=== PATIENT | female | born 1960 | race African-American/Black ===

== ENCOUNTER 2018-03-18 08:13 | Outpatient (CLI) | payer MEDICARE, MEDICAID | END 2018-03-18 08:14 | disposition home or self-care (01) | LOC: BICMAMMO 08:13 | PROVIDERS: ATTEND Family Medicine | DX: Z12.31 Encounter for screening mammogram for malignant neoplasm of breast (principal) | CPT/HCPCS: 77063; 77067 ==

== ENCOUNTER 2019-01-27 11:10 | Emergency (ER) | payer MEDICARE, MEDICAID ==
--- NOTE | 2019-01-27 11:37 | CT ---
CT head noncontrast HISTORY: Fall. Head injury. FINDINGS: There is no evidence of acute intracranial hemorrhage or infarct. Physiologic calcification at each basal ganglia, somewhat prominent. No mass effect or shift of midline structures. Scalp swelling over the right frontal calvarium. Visualized paranasal sinuses remain well-aerated. IMPRESSION: Right frontal scalp swelling. No acute intracranial abnormalities are demonstrated.
--- NOTE | 2019-01-27 11:41 | CT ---
CT Cervical Spine WO Con Indication: Fall with neck pain COMPARISON: None. FINDINGS: Acute fracture/subluxation: None. Spinal alignment: There is straightening of the normal cervical lordosis. Vertebral body heights: Maintained. Cervical spine degenerative change: There is a moderate to severe multilevel disc degenerative diseas e. IMPRESSION: No acute fracture or subluxation. Moderate to severe spondylosis of the cervical spine.
== END 2019-01-27 12:30 | disposition home or self-care (01) ==
LOC: ERS 11:10
DX: S00.83XA Contusion of other part of head, initial encounter (principal); I10 Essential (primary) hypertension; W18.30XA Fall on same level, unspecified, initial encounter
CPT/HCPCS: 70450; 72125

== ENCOUNTER 2019-09-05 08:37 | Outpatient (CLI) | payer MEDICARE, MEDICAID ==
--- NOTE | 2019-09-05 09:29 | MMO ---
Bilateral MAMMO Bilat Screen [facility]. CLINICAL HISTORY: Patient is 59 years old and is seen for screening. The patient has no family history of breast cancer. The patient has no personal history of cancer. VIEWS: The views performed were: bilateral craniocaudal with tomosynthesis and bilateral mediolateral oblique with tomosynthesis. FILMS COMPARED: The present examination has been compared to prior imaging studies performed at [facility] on 03/03/2015, 03/06/2016, 03/14/2017 and 03/18/2018. This study has been interpreted with the assistance of computer-aided detection. MAMMOGRAM FINDINGS: There are scattered fibroglandular densities. There are no suspicious masses, suspicious calcifications, or new areas of architectural distortion. IMPRESSION: THERE IS NO MAMMOGRAPHIC EVIDENCE OF MALIGNANCY. A ROUTINE FOLLOW-UP MAMMOGRAM IN 1 YEAR IS RECOMMENDED. THE RESULTS OF THIS EXAM WERE SENT TO THE PATIENT. ACR BI-RADS Category 1 - Negative MAMMOGRAPHY NOTE: 1. A negative mammogram report should not delay a biopsy if a dominant of clinically suspicious mass is present. 2. Approximately 10% to 15% of breast cancers are not detected by mammography. 3. Adenosis and dense breasts may obscure an underlying neoplasm. Reported by: FELIPE BARAJAS MD Electonically Signed: [id number]
== END 2019-09-05 08:38 | disposition home or self-care (01) ==
LOC: BICMAMMO 08:37
PROVIDERS: ATTEND Family Medicine
DX: Z12.31 Encounter for screening mammogram for malignant neoplasm of breast (principal)
CPT/HCPCS: 77063; 77067

== ENCOUNTER 2020-09-27 08:02 | Outpatient (CLI) | payer MEDICARE, MEDICAID ==
--- NOTE | 2020-09-27 09:44 | MMO ---
Bilateral MAMMO Bilat Screen [facility]. CLINICAL HISTORY: Patient is 60 years old and is seen for screening. The patient has no family history of breast cancer. The patient has no personal history of cancer. VIEWS: The views performed were: bilateral craniocaudal with tomosynthesis and bilateral mediolateral oblique with tomosynthesis. FILMS COMPARED: The present examination has been compared to prior imaging studies performed at [facility] and [facility] on 03/06/2016, 03/14/2017, 03/18/2018 and 09/05/2019. This study has been interpreted with the assistance of computer-aided detection. MAMMOGRAM FINDINGS: There are scattered fibroglandular densities. There is an asymmetry seen in the upper-outer region of the right breast. In the left breast, there are no suspicious masses, calcifications or areas of architectural distortion. IMPRESSION: ASYMMETRY IN THE RIGHT BREAST REQUIRES ADDITIONAL EVALUATION. AN ULTRASOUND EXAM IS RECOMMENDED IF NEEDED. ADDITIONAL IMAGING. THE RESULTS OF THIS EXAM WERE SENT TO THE PATIENT. ACR BI-RADS Category 0 - Incomplete: Need additional imaging evaluation. [facility] and the [facility] will notify the patient of the need for additional imaging services. MAMMOGRAPHY NOTE: 1. A negative mammogram report should not delay a biopsy if a dominant of clinically suspicious mass is present. 2. Approximately 10% to 15% of breast cancers are not detected by mammography. 3. Adenosis and dense breasts may obscure an underlying neoplasm. Reported by: DANITA MOLINA MD Electonically Signed: [id number]
== END 2020-09-27 08:03 | disposition home or self-care (01) ==
LOC: BICMAMMO 08:02
PROVIDERS: ATTEND Family Medicine
DX: Z12.31 Encounter for screening mammogram for malignant neoplasm of breast (principal); N64.89 Other specified disorders of breast
CPT/HCPCS: 77063; 77067

== ENCOUNTER 2020-10-07 09:59 | Outpatient (CLI) | payer MEDICARE, MEDICAID ==
--- NOTE | 2020-10-07 11:48 | MMO ---
Right Breast MAMMO Unilat Diag [facility]. CLINICAL HISTORY: Patient is 60 years old and is seen for additional evaluation requested from prior study. The patient has no family history of breast cancer. The patient has no personal history of cancer. VIEWS: The views performed were: right craniocaudal spot compression with tomosynthesis; right mediolateral oblique spot compression with tomosynthesis; and right mediolateral with tomosynthesis. FILMS COMPARED: The present examination has been compared to prior imaging studies performed at [facility] on 03/18/2018, 09/05/2019, 09/27/2020 and 10/07/2020. This study has been interpreted with the assistance of computer-aided detection. MAMMOGRAM FINDINGS: There are scattered fibroglandular densities. There is a mass measuring 9 millimeters seen in the middle region of the right breast at 11 o'clock located 8 centimeters from the nipple. Margins are irregular but not spiculated. On ultrasound, there is a prt-[id number] flat thin hypoechoic well circumscribed structure at the upper outer quadrant which may or may not correspond to this mammographic mass. The findings and recommendations were discussed by Dr Rice with the patient's caregiver (presumably her mother) immediately after the ultrasound. IMPRESSION: MASS IN THE RIGHT BREAST IS PROBABLY BENIGN. FOLLOW-UP IN 6 MONTHS IS RECOMMENDED. RECOMMEND FOLLOW UP RIGHT MAMMOGRAMS AND ULTRASOUNDS AT 6 MONTHS, 1 YEAR, AND 2 YEARS. THE RESULTS OF THIS EXAM WERE SENT TO THE PATIENT. ACR BI-RADS Category 3 - Probably benign finding - short interval follow-up suggested. [facility] will notify the patient of the need for additional imaging services. MAMMOGRAPHY NOTE: 1. A negative mammogram report should not delay a biopsy if a dominant of clinically suspicious mass is present. 2. Approximately 10% to 15% of breast cancers are not detected by mammography. 3. Adenosis and dense breasts may obscure an underlying neoplasm. Reported by: DRAKE RICE MD Electonically Signed: [id number]
--- NOTE | 2020-10-07 11:54 | ULT ---
Ultrasound right breast limited: 10/07/2020 HISTORY: 60-year-old female with focal mass at right upper outer quadrant. TECHNIQUE: Focused ultrasound of right upper outer quadrant from 9:00 to 12:00. FINDINGS: At the right axillary tail, there are multiple dilated ducts. At the 11:00 position, 4 cm from the nipple, there is a thin, elongated, wider than tall, nonshadowin g, well-circumscribed, hypoechoic lesion that measures approximately 0.1 x 0.9 x 0.6 cm. It may or may not correspond to the mammographic mass in question. It resembles the dilated ducts seen in the r ight axillary tail. Survey of the rest of the right upper outer quadrant demonstrates no highly suspicious spiculated aster ast mass. No architectural distortion. IMPRESSION: 1.) BI-RADS 3-probably benign. Short interval follow-up suggested. 2) recommend follow-up right breast ultrasounds and right mammograms at 6 months, one year, and 2 [facility] turner
== END 2020-10-07 10:00 | disposition home or self-care (01) ==
LOC: BICMAMMO 09:59
PROVIDERS: ATTEND Family Medicine
DX: R92.8 Other abnormal and inconclusive findings on diagnostic imaging of breast (principal); N63.11 Unspecified lump in the right breast, upper outer quadrant
CPT/HCPCS: 76642; 77065; G0279

== ENCOUNTER 2022-02-14 13:47 | Outpatient (CLI) | payer MEDICARE, MEDICAID | END 2022-02-14 13:48 | disposition home or self-care (01) | LOC: ULT 13:47 | PROVIDERS: ATTEND Family Medicine | DX: I82.402 Acute embolism and thrombosis of unspecified deep veins of left lower extremity (principal); I82.432 Acute embolism and thrombosis of left popliteal vein; I82.412 Acute embolism and thrombosis of left femoral vein ==

== ENCOUNTER 2022-04-11 10:10 | Outpatient (CLI) | payer MEDICARE, MEDICAID | END 2022-04-11 10:11 | disposition home or self-care (01) | LOC: BICMAMMO 10:10 | PROVIDERS: ATTEND Family Medicine | DX: Z12.31 Encounter for screening mammogram for malignant neoplasm of breast (principal) | CPT/HCPCS: 77063; 77067 ==

== ENCOUNTER 2022-08-08 13:13 | Outpatient (CLI) | payer MEDICARE, MEDICAID | END 2022-08-08 13:14 | disposition home or self-care (01) | LOC: ULT 13:13 | PROVIDERS: ATTEND Family Medicine | DX: I82.432 Acute embolism and thrombosis of left popliteal vein (principal) ==

== ENCOUNTER 2023-05-24 13:54 | Outpatient (CLI) | payer MEDICARE, MEDICAID | END 2023-05-24 13:55 | disposition home or self-care (01) | LOC: BICMAMMO 13:54 | PROVIDERS: ATTEND Family Medicine | DX: Z12.31 Encounter for screening mammogram for malignant neoplasm of breast (principal) | CPT/HCPCS: 77063; 77067 ==

== ENCOUNTER 2024-10-23 10:31 | Outpatient (CLI) | payer MEDICARE, MEDICAID | END 2024-10-23 10:32 | disposition home or self-care (01) | LOC: ULT 10:31 | PROVIDERS: ATTEND Family Medicine | DX: R19.00 Intra-abdominal and pelvic swelling, mass and lump, unspecified site (principal); K80.20 Calculus of gallbladder without cholecystitis without obstruction; N13.30 Unspecified hydronephrosis | CPT/HCPCS: 76700; 76856 ==